=== PATIENT | female | born 1945 | race Caucasian/White ===

== ENCOUNTER 2018-07-02 05:42 | Inpatient (IN) | payer MEDICARE, BC ==
[~2018-07-02] VITALS: Ht 160 cm; Wt 56.8 kg
[~2018-07-02 05:42] MED LIST: ACYC15OI6 TP; ANAS1TAB PO; ASCO10004 PO; BUTA-177 PO; CALC1CAP8 PO; CHOL2000 PO; DENO60DI INJ; DICL75TA2 PO; HYDR25TA11 PO; LEVO50TA5 PO; MULT-717 PO; VALA500T PO; VENL150C PO
[2018-07-02] MEDS ORDERED: LIDOCAINE/PF 0.5% ,50ML ONE (06:33)
[2018-07-02] MEDS ORDERED: THROMBIN 5,000 UNIT VIAL TP ONE (06:33)
[2018-07-02] MEDS ORDERED: BUPIVACAINE/PF 0.5% ONE (06:33)
[2018-07-02] MEDS ORDERED: VANCOMYCIN 500 MG ONE (06:33)
[2018-07-02] MEDS ORDERED: VANCOMYCIN 1,000 MG ONE (06:34)
[2018-07-02] MEDS ORDERED: EPINEPHRINE 1 MG/ML, 1ML ONE (06:34)
[2018-07-02] MEDS ORDERED: BUPIVACAINE/PF 0.25% ONE (06:55)
[2018-07-02] MEDS ORDERED: LACTATED RINGERS 1,000 ML IV SCH (07:02)
[2018-07-02] MEDS ORDERED: FENTANYL PF 100 MCG/2ML ONE ×3 (07:28→13:07)
[2018-07-02] MEDS ORDERED: MIDAZOLAM 1 MG/ML, 2ML ONE (07:28)
[2018-07-02] MEDS ORDERED: KETAMINE 50 MG/ML, 10ML ONE (07:43)
[2018-07-02] MEDS ORDERED: SCOPOLAMINE PATCH, 1.5MG PATCH.TD72 TD ONE ×2 (07:44→08:00)
[2018-07-02] MEDS ORDERED: EPHEDRINE 50 MG/ML, 1ML ONE (07:52)
[2018-07-02] MEDS ORDERED: SUCCINYLCHOLINE 20 MG/ML, 10ML ONE (07:52)
[2018-07-02] MEDS ORDERED: ROCURONIUM 10 MG/ML,10ML ONE (07:52)
[2018-07-02] MEDS ORDERED: PROPOFOL 10 MG/ML, 50ML ONE (07:52)
[2018-07-02] MEDS ORDERED: CEFAZOLIN 1,000 MG ONE ×2 (07:52)
[2018-07-02] MEDS ORDERED: PHENYLEPHRINE 10 MG/ML ONE (07:52)
[2018-07-02] MEDS ORDERED: GLYCOPYRROLATE 0.2MG/1ML, 5ML ONE (07:52)
[2018-07-02] MEDS ORDERED: PROPOFOL 10 MG/ML, 20ML ONE (07:52)
[2018-07-02] MEDS ORDERED: OXYcodone 5 MG/5 ML ORAL.SOL UDC PO PRN (12:30)
[2018-07-02] MEDS ORDERED: ONDANSETRON 2MG/ML, 2ML IVPush PRN (12:30)
[2018-07-02] MEDS ORDERED: MIDAZOLAM 1 MG/ML, 2ML IV PRN (12:30)
[2018-07-02] MEDS ORDERED: MEPERIDINE/PF 25MG/0.5ML IVPush PRN (12:30)
[2018-07-02] MEDS ORDERED: HYDROmorphone 1 MG/ML, 1ML IV PRN (12:30)
[2018-07-02] MEDS ORDERED: LABETALOL 5MG/ML, 20ML IV PRN (12:30)
[2018-07-02] MEDS ORDERED: OXYcodone 5 MG/5 ML ORAL.SOL UDC ONE (13:06)
[2018-07-02] MEDS: FENTANYL PF 100 MCG/2ML IV PRN ×3 (13:13→13:55)
[2018-07-02] MEDS ORDERED: BISACODYL 10 MG SUPP PR PRN (15:30)
[2018-07-02] MEDS ORDERED: ONDANSETRON 2MG/ML, 2ML IV PRN (15:30)
[2018-07-02] MEDS ORDERED: HYDROcodone/APAP 5/325 TABLET PO PRN (15:30)
[2018-07-02] MEDS ORDERED: PROMETHAZINE 25 MG/ML, 1ML IM PRN (15:30)
[2018-07-02] MEDS: METHOCARBAMOL 750 MG TABLET PO PRN ×2 (16:07→23:59)
[2018-07-02] MEDS: D5%-0.9% NACL+KCL 20MEQ 1,000 ML IV SCH (16:07)
[2018-07-02] MEDS: HYDROcodone/APAP 10/325 MG TABLET PO PRN ×2 (17:45→21:29)
[2018-07-02] MEDS: morphine SULFATE 10 MG/ML, 1ML IV PRN ×3 (19:19→23:59)
[2018-07-02 20:00] VITALS: BP 144/72
[2018-07-02] MEDS ORDERED: CEFAZOLIN PMX 1GM/50ML 50 ML IVPB SCH (20:00)
[2018-07-02] MEDS: CEFAZOLIN 1,000 MG in SODIUM CHLORIDE 0.9% 50 ML IVPB SCH (20:55)
[2018-07-03] MEDS: D5%-0.9% NACL+KCL 20MEQ 1,000 ML IV SCH ×3 (01:30→21:30)
[2018-07-03] MEDS: HYDROcodone/APAP 10/325 MG TABLET PO PRN ×5 (01:33→22:04)
[2018-07-03 03:26] VITALS: BP 111/60
[2018-07-03] MEDS: CEFAZOLIN 1,000 MG in SODIUM CHLORIDE 0.9% 50 ML IVPB SCH (04:23)
[2018-07-03] MEDS ORDERED: LEVOTHYROXINE 100 MCG TABLET ONE (05:30)
[2018-07-03] MEDS: LEVOTHYROXINE 50 MCG TABLET PO SCH (06:00)
[2018-07-03] MEDS: VENLAFAXINE 75 MG CAP ER PO SCH (08:01)
[2018-07-03] MEDS: METHOCARBAMOL 750 MG TABLET PO PRN ×2 (08:02→17:27)
[2018-07-03] MEDS: SENNA/DOCUSATE TABLET PO SCH (08:02)
[2018-07-03] MEDS: ANASTROZOLE 1 MG TABLET PO SCH (08:02)
[2018-07-03 08:11] VITALS: BP 111/58
[2018-07-03 14:29] VITALS: BP 105/53
[2018-07-03 19:35] VITALS: BP 118/63
[2018-07-04 01:31] VITALS: BP 136/81
[2018-07-04] MEDS: METHOCARBAMOL 750 MG TABLET PO PRN (02:44)
[2018-07-04] MEDS: HYDROcodone/APAP 10/325 MG TABLET PO PRN (02:44)
[2018-07-04] MEDS: LEVOTHYROXINE 50 MCG TABLET PO SCH (06:00)
[2018-07-04] MEDS ORDERED: LEVOTHYROXINE 100 MCG TABLET ONE (06:40)
[2018-07-04 06:59] VITALS: BP 147/73
[2018-07-04] MEDS: D5%-0.9% NACL+KCL 20MEQ 1,000 ML IV SCH ×2 (07:30→17:16)
[2018-07-04] MEDS: VENLAFAXINE 75 MG CAP ER PO SCH (09:06)
[2018-07-04] MEDS: ANASTROZOLE 1 MG TABLET PO SCH (09:09)
[2018-07-04] MEDS: SENNA/DOCUSATE TABLET PO SCH (09:13)
[2018-07-04] MEDS ORDERED: ACETAMINOPHEN 325 MG TABLET PO PRN (11:30)
[2018-07-04] MEDS ORDERED: BUTALBITAL MC SCH (11:30)
[2018-07-04] MEDS ORDERED: BUTALBITAL PO PRN (11:30)
[2018-07-04 12:23] VITALS: BP 166/77
[2018-07-04] MEDS ORDERED: BUTALB/APAP/CAFFEINE 50MG/325MG/40MG PO PRN (15:30)
[2018-07-04 20:20] VITALS: BP 145/75
[2018-07-05 02:43] VITALS: BP 169/83
[2018-07-05] MEDS: MAGNESIUM HYDROXIDE 8%, 30ML UDC PO PRN (03:08)
[2018-07-05] MEDS ORDERED: LEVOTHYROXINE 100 MCG TABLET ONE (05:30)
[2018-07-05] MEDS: LEVOTHYROXINE 50 MCG TABLET PO SCH (05:33)
[2018-07-05] MEDS: D5%-0.9% NACL+KCL 20MEQ 1,000 ML IV SCH (07:23)
[2018-07-05] MEDS: VENLAFAXINE 75 MG CAP ER PO SCH (07:48)
[2018-07-05] MEDS: SENNA/DOCUSATE TABLET PO SCH (07:50)
[2018-07-05] MEDS: ANASTROZOLE 1 MG TABLET PO SCH (07:55)
[2018-07-05 08:11] VITALS: BP 174/91
[2018-07-05 08:40] VITALS: BP 165/88
[2018-07-05] MEDS ORDERED: METOCLOPRAMIDE 5 MG/ML, 2ML IVPush PRN (10:30)
[2018-07-05] MEDS ORDERED: LORazepam 0.5MG TABLET PO PRN (12:00)
[2018-07-05] MEDS ORDERED: LORazepam 2 MG/ML, 1ML IV PRN (12:00)
[2018-07-05] MEDS: POTASSIUM CHLORIDE 10 MEQ, MVI ADULT 10 ML, FOLIC ACID 1 MG, MAGNESIUM SULFATE 1 GM in ... IV SCH ×2 (13:55→14:00)
[2018-07-05 14:28] LABS: BASOPHILS # (AUTO) 0.01 x10^3/uL (0-0.1); BASOPHILS % (AUTO) 0 % (0-1); EOSINOPHILS # (AUTO) 0.02 x10^3/uL (0-0.4); EOSINOPHILS % (AUTO) 0 % (1-7); LYMPHOCYTES # (AUTO) 0.38 x10^3/uL (1-3.4); LYMPHOCYTES % (AUTO) 3 % (22-44); MD NO; MEAN CORPUSCULAR HEMOGLOBIN 34.2 pg (27.0-34.8); MEAN CORPUSCULAR HGB CONC 33.8 g/dL (32.4-35.8); MEAN CORPUSCULAR VOLUME 101.3 fL (80-100); MEAN PLATELET VOLUME 8.4 fL (7.4-10.4); MONOCYTES % (AUTO) 6 % (2-9); NEUTROPHILS # (AUTO) 12.64 x10^3/uL (1.8-6.8); NEUTROPHILS % (AUTO) 91 % (42-75); PLATELET COUNT 175 x10^3/uL (130-400); RED BLOOD COUNT 3.18 x10^6/uL (3.82-5.3); RED CELL DISTRIBUTION WIDTH 13.5 % (9.6-15.2)
[2018-07-05 14:39] LABS: ANION GAP 6 mmol/L (5-15); CALCIUM 6.8 mg/dL (8.5-10.1); CHLORIDE 114 mmol/L (98-107); CREATININE 0.85 mg/dL (0.55-1.02)
[2018-07-05 15:00] VITALS: BP 167/85
[2018-07-05] MEDS ORDERED: ONDANSETRON 2MG/ML, 2ML IVPush PRN (16:00)
[2018-07-05 16:19] LABS: MEAN CORPUSCULAR HEMOGLOBIN 33.5 pg (27.0-34.8); MEAN CORPUSCULAR HGB CONC 33.8 g/dL (32.4-35.8); MEAN PLATELET VOLUME 8.8 fL (7.4-10.4); PLATELET COUNT 201 x10^3/uL (130-400); RED BLOOD COUNT 3.92 x10^6/uL (3.82-5.3)
[2018-07-05 16:24] LABS: ALBUMIN 2.7 g/dL (3.4-5.0); CALCIUM 8.1 mg/dL (8.5-10.1); CHLORIDE 106 mmol/L (98-107); CREATININE 0.69 mg/dL (0.55-1.02)
[2018-07-05 16:39] LABS: BASOPHILS % (AUTO) 0 % (0-1); EOSINOPHILS # (AUTO) 0.01 x10^3/uL (0-0.4); EOSINOPHILS % (AUTO) 0 % (1-7); LYMPHOCYTES # (AUTO) 0.42 x10^3/uL (1-3.4); LYMPHOCYTES % (AUTO) 3 % (22-44); MD SCAN; MONOCYTES # (AUTO) 0.88 x10^3/uL (0.2-0.8); MONOCYTES % (AUTO) 5 % (2-9); NEUTROPHILS # (AUTO) 15.71 x10^3/uL (1.8-6.8); NEUTROPHILS % (AUTO) 92 % (42-75)
[2018-07-05] MEDS ORDERED: WINE PO SCH (17:00)
[2018-07-05 17:27] LABS: MICROSCOPIC AUTO
[2018-07-05] MEDS ORDERED: POTASSIUM PHOSPHATE 44 MEQ in SODIUM CHLORIDE 0.9% 500 ML IV ONE (17:30)
[2018-07-05 17:32] LABS: CULTURE INDICATED? NO
[2018-07-05 20:00] VITALS: BP 178/82
[2018-07-06] MEDS: POTASSIUM CHLORIDE 10 MEQ, MVI ADULT 10 ML, FOLIC ACID 1 MG, MAGNESIUM SULFATE 1 GM in ... IV SCH ×2 (00:11→13:47)
[2018-07-06 02:00] VITALS: BP 175/84
[2018-07-06] MEDS ORDERED: LEVOTHYROXINE 25 MCG TABLET ONE (06:32)
[2018-07-06] MEDS: LEVOTHYROXINE 50 MCG TABLET PO SCH (06:33)
[2018-07-06 06:51] VITALS: BP 165/80
[2018-07-06 08:15] LABS: ANION GAP 7 mmol/L (5-15); CALCIUM 7.9 mg/dL (8.5-10.1); CHLORIDE 108 mmol/L (98-107); CREATININE 0.58 mg/dL (0.55-1.02)
[2018-07-06] MEDS: SENNA/DOCUSATE TABLET PO SCH (09:23)
[2018-07-06] MEDS: VENLAFAXINE 75 MG CAP ER PO SCH (09:24)
[2018-07-06] MEDS: ANASTROZOLE 1 MG TABLET PO SCH (09:24)
[2018-07-06] MEDS: LACTATED RINGERS 1,000 ML IV SCH ×2 (10:18→21:39)
[2018-07-06] MEDS: QUETIAPINE 25MG TABLET PO PRN (12:21)
[2018-07-06] MEDS: WINE PO SCH (13:19)
[2018-07-06 14:30] VITALS: BP 168/81
[2018-07-06 19:29] VITALS: BP 155/78
[2018-07-06] MEDS ORDERED: LORazepam 2 MG/ML, 1ML IVPush ONE (21:30)
[2018-07-06] MEDS: MELATONIN 3 MG TABLET PO SCH (21:40)
[2018-07-07] MEDS: POTASSIUM CHLORIDE 10 MEQ, MVI ADULT 10 ML, FOLIC ACID 1 MG, MAGNESIUM SULFATE 1 GM in ... IV SCH ×2 (00:11→15:31)
[2018-07-07] MEDS: QUETIAPINE 25MG TABLET PO PRN (00:52)
[2018-07-07 01:01] VITALS: BP 170/92
[2018-07-07] MEDS: LEVOTHYROXINE 50 MCG TABLET PO SCH (06:23)
[2018-07-07 07:42] VITALS: BP 158/77
[2018-07-07] MEDS: WINE PO SCH ×3 (08:43→16:00)
[2018-07-07] MEDS: VENLAFAXINE 75 MG CAP ER PO SCH (08:44)
[2018-07-07] MEDS: SENNA/DOCUSATE TABLET PO SCH (08:47)
[2018-07-07] MEDS: ANASTROZOLE 1 MG TABLET PO SCH (08:47)
[2018-07-07] MEDS: LACTATED RINGERS 1,000 ML IV SCH ×2 (10:19→20:00)
[2018-07-07 12:29] LABS: BASOPHILS # (AUTO) 0.01 x10^3/uL (0-0.1); BASOPHILS % (AUTO) 0 % (0-1); EOSINOPHILS # (AUTO) 0.43 x10^3/uL (0-0.4); EOSINOPHILS % (AUTO) 7 % (1-7); LYMPHOCYTES # (AUTO) 0.85 x10^3/uL (1-3.4); LYMPHOCYTES % (AUTO) 13 % (22-44); MD NO; MEAN CORPUSCULAR HEMOGLOBIN 32.9 pg (27.0-34.8); MEAN CORPUSCULAR HGB CONC 33.5 g/dL (32.4-35.8); MEAN CORPUSCULAR VOLUME 98.3 fL (80-100); MEAN PLATELET VOLUME 7.7 fL (7.4-10.4); MONOCYTES # (AUTO) 0.97 x10^3/uL (0.2-0.8); MONOCYTES % (AUTO) 15 % (2-9); NEUTROPHILS # (AUTO) 4.29 x10^3/uL (1.8-6.8); NEUTROPHILS % (AUTO) 66 % (42-75); PLATELET COUNT 227 x10^3/uL (130-400); RED BLOOD COUNT 3.56 x10^6/uL (3.82-5.3); RED CELL DISTRIBUTION WIDTH 12.9 % (9.6-15.2)
[2018-07-07 12:35] LABS: ALANINE AMINOTRANSFERASE 21 U/L (12-78); ALBUMIN 2.6 g/dL (3.4-5.0); ANION GAP 8 mmol/L (5-15); CHLORIDE 106 mmol/L (98-107); CREATININE 0.62 mg/dL (0.55-1.02)
[2018-07-07 12:37] LABS: ALKALINE PHOSPHATASE 60 U/L (45-117); BILIRUBIN,TOTAL 0.5 mg/dL (0.2-1.0); TOTAL PROTEIN 6.1 g/dL (6.4-8.2)
[2018-07-07 14:41] VITALS: BP 154/70
[2018-07-07 20:42] VITALS: BP 150/73
[2018-07-07] MEDS: MELATONIN 3 MG TABLET PO SCH (23:48)
[2018-07-08 02:06] VITALS: BP 153/79
[2018-07-08] MEDS: POTASSIUM CHLORIDE 10 MEQ, MVI ADULT 10 ML, FOLIC ACID 1 MG, MAGNESIUM SULFATE 1 GM in ... IV SCH (03:12)
[2018-07-08] MEDS: LACTATED RINGERS 1,000 ML IV SCH ×2 (06:00→21:53)
[2018-07-08] MEDS: LEVOTHYROXINE 50 MCG TABLET PO SCH (06:00)
[2018-07-08] MEDS ORDERED: LEVOTHYROXINE 25 MCG TABLET ONE (06:08)
[2018-07-08] MEDS: WINE PO SCH ×3 (07:00→16:00)
[2018-07-08 07:33] VITALS: BP 156/75
[2018-07-08] MEDS: SENNA/DOCUSATE TABLET PO SCH (09:00)
[2018-07-08] MEDS: VENLAFAXINE 75 MG CAP ER PO SCH (09:00)
[2018-07-08] MEDS: MAGNESIUM HYDROXIDE 8%, 30ML UDC PO PRN (09:00)
[2018-07-08 14:26] VITALS: BP 133/72
[2018-07-08 20:00] VITALS: BP 135/70
[2018-07-08] MEDS: MELATONIN 3 MG TABLET PO SCH (21:53)
[2018-07-09 02:19] VITALS: BP 146/74
[2018-07-09] MEDS ORDERED: POTASSIUM CHLORIDE 10 MEQ, MVI ADULT 10 ML, FOLIC ACID 1 MG, MAGNESIUM SULFATE 1 GM in ... IV SCH (03:00)
[2018-07-09] MEDS: LEVOTHYROXINE 50 MCG TABLET PO SCH (05:08)
[2018-07-09] MEDS: MAGNESIUM HYDROXIDE 8%, 30ML UDC PO PRN (05:09)
[2018-07-09 07:56] VITALS: BP 141/72
[2018-07-09] MEDS: WINE PO SCH ×2 (08:00→11:00)
[2018-07-09] MEDS: SENNA/DOCUSATE TABLET PO SCH (08:32)
[2018-07-09] MEDS: VENLAFAXINE 75 MG CAP ER PO SCH (08:36)
[2018-07-09] MEDS ORDERED: ANASTROZOLE 1 MG TABLET PO SCH (09:00)
== END 2018-07-09 12:00 | disposition home or self-care (01) | DRG 454 ==
LOC: ORIP 05:42 → 4NOR 14:42 → 4EST 07-03 12:14 → 4NOR 07-03 12:14 → DCLOUNGE 07-09 11:45
PROVIDERS: ADMIT Orthopaedic Surgery Orthopaedic Surgery of the Spine; ATTEND Orthopaedic Surgery Orthopaedic Surgery of the Spine
PROC: 0SG0071 Fusion of Lumbar Vertebral Joint with Autologous Tissue Substitute, Posterior Approach, Posterior Column, Open Approach (ICD-10-PCS; 2018-07-02)
PROC: 0SB20ZZ Excision of Lumbar Vertebral Disc, Open Approach (ICD-10-PCS; 2018-07-02)
PROC: 00U20JZ Supplement Dura Mater with Synthetic Substitute, Open Approach (ICD-10-PCS; 2018-07-02)
PROC: 4A11X4G Monitoring of Peripheral Nervous Electrical Activity, Intraoperative, External Approach (ICD-10-PCS; 2018-07-02)
PROC: 0SG00A0 Fusion of Lumbar Vertebral Joint with Interbody Fusion Device, Anterior Approach, Anterior Column, Open Approach (ICD-10-PCS; principal; 2018-07-02 07:30)
DX: M48.061 Spinal stenosis, lumbar region without neurogenic claudication (principal); F05 Delirium due to known physiological condition; K56.7 Ileus, unspecified; G97.41 Accidental puncture or laceration of dura during a procedure; D72.829 Elevated white blood cell count, unspecified; E03.9 Hypothyroidism, unspecified; E83.39 Other disorders of phosphorus metabolism; M43.16 Spondylolisthesis, lumbar region; F10.10 Alcohol abuse, uncomplicated; Y90.9 Presence of alcohol in blood, level not specified; F41.9 Anxiety disorder, unspecified; E86.0 Dehydration; F32.9 Major depressive disorder, single episode, unspecified; G47.00 Insomnia, unspecified; M54.16 Radiculopathy, lumbar region; Z80.0 Family history of malignant neoplasm of digestive organs; Z79.890 Hormone replacement therapy; Z80.42 Family history of malignant neoplasm of prostate; Z85.3 Personal history of malignant neoplasm of breast; Z90.13 Acquired absence of bilateral breasts and nipples; Z90.710 Acquired absence of both cervix and uterus; Z90.49 Acquired absence of other specified parts of digestive tract; Z88.5 Allergy status to narcotic agent; Z98.1 Arthrodesis status; Y83.8 Other surgical procedures as the cause of abnormal reaction of the patient, or of later complication, without mention of misadventure at the time of the procedure; Y92.89 Other specified places as the place of occurrence of the external cause
CPT/HCPCS: 36415; 70450; 72100; 74176; 80048; 80053; 81001; 82040; 82310; 82374; 82435; 82565; 82947; 82962; 83735; 84100; 84132; 84295; 84520; 85025; 93005; C1713; C1767; C1776; G0378; J0171; J0690; J2001; J2250; J2405; J2550; J2704; J3010; J3370; J3475; J3480; J3490; J7042; C1762; C1781; J0330; J2060; J2270; J2370; J2765; J7040; J7120; Q0177